=== PATIENT | female | born 1950 | race Caucasian/White ===

== ENCOUNTER 2024-07-22 12:23 | Emergency (ER) | payer MEDICARE, OTHER ==
[2024-07-22] MEDS ORDERED: Ketorolac Tromethamine 30 MG (1 mL) VIAL ONE (12:31)
[2024-07-22] MEDS ORDERED: HYDROcodone/Acetaminophen 5/325 mg Tablet ONE (12:32)
[2024-07-22] MEDS ORDERED: Lidocaine 4% Patch ONE (13:01)
[2024-07-22 13:39] LABS: Bacteria/HPF 4+ HPF (None Seen); Bilirubin Negative (Negative); Blood, Urine Negative (Negative); CAUTI Indications for Culture Pelvic or flank pain; Clarity Turbid (Clear); Glucose, Urine (Dipstick) Normal (Negative); Ketone, Urine Trace mg/dL (Negative); Leukocyte 25 Leu/uL (Negative); Nitrite 2+ (Negative); Protein, Urine (Dipstick) Negative (Neg-Trace); RBC/HPF 0-3 HPF (0-3); Specific Gravity, Urine 1.019 (1.002-1.036); Urobilinogen 3 mg/dL (Less than 2)
[2024-07-22 13:41] LABS: Urine Culture Reflex No No
== END 2024-07-22 13:49 | disposition home or self-care (01) ==
LOC: ERS 12:23
DX: N39.0 Urinary tract infection, site not specified (principal)
CPT/HCPCS: 81001; 96372; 99283; J1885